=== PATIENT | female | born 1965 | race Caucasian/White ===

== ENCOUNTER 2019-01-16 11:49 | Day surgery (SDC) | payer BC ==
[2019-01-16] VITALS (12 sets, daily range): BP systolic 82–148; BP diastolic 51–89; PULSE 57–78; RESP 13–18; Ht 175.3 cm; Wt 63.5 kg
[~2019-01-16] VITALS: Ht 175.3 cm; Wt 63.5 kg
[2019-01-16] MEDS ORDERED: MOME13HF INHALATION (12:26)
[2019-01-16] MEDS ORDERED: ABAC1TAB12 PO (12:26)
[2019-01-16] MEDS ORDERED: HYDR-842 PO (12:27)
[2019-01-16] MEDS ORDERED: ESTR2TAB PO (12:27)
[2019-01-16] MEDS ORDERED: SPIR100T4 PO (12:28)
[2019-01-16] MEDS ORDERED: ASPI81TA52 PO (12:32)
[2019-01-16] MEDS ORDERED: LORA10TA3 PO (12:33)
[2019-01-16] MEDS ORDERED: ATOR20TA38 PO (12:34)
[2019-01-16] MEDS ORDERED: MONT10TA24 PO (12:35)
[2019-01-16] MEDS ORDERED: BUPR200T PO (12:36)
[2019-01-16] MEDS ORDERED: GABA-528 PO (12:36)
[2019-01-16] MEDS ORDERED: TAMS-14 PO (12:37)
[2019-01-16] MEDS ORDERED: SOD CHLORIDE 0.9% 1,000 ML IV ONE (13:00)
--- NOTE | 2019-01-16 14:46 | HPN ---
Date/Time of Note Date/Time of Note DATE: 01/16/19 TIME: 14:46 Interval H&P Admission Note Pt. seen H&P reviewed: No system changes ZOHAIB HUNTER MD January 16, 2019 14:46
--- NOTE | 2019-01-16 14:48 | PREAC ---
Date/Time of Note Date/Time of Note DATE: 01/16/19 TIME: 14:45 Anesthesia Eval and Record Evaluation Time Pre-Procedure Interview DATE: 01/16/19 TIME: 14:45 Age 53 Sex female NPO: 8 hrs Preoperative diagnosis dural role transvestism Planned procedure BILATERAL TRANSGENDER BREAST Past Medical History Past Medical History: Includes Cardio: Dyslipidemia Pulm: Smoking Hx (smoked 4 hours ago 30 year smoker), Asthma Neuro: Peripheral neuropathy Psych: Bipolar, Other (schizoaffective disorder) Infection(s): HIV Recreational drugs: Marijuana (everyday use) Surgery & Anesthesia Issues No known issue Meds Anticoagulation: No Beta Demetria within 24 hr: No Reason Beta Demetria not given: Pt. not on B-Demetria Reported Medications Tamsulosin Hcl* (Flomax*) 0.4 Mg Cap.er.24h, 0.4 MG PO DAILY, CAP 01/16/19 Bupropion Hcl* (Bupropion Hcl SR*) 200 Mg Tablet.sa, 200 MG PO DAILY, TAB.SA 01/16/19 Gabapentin* (Gabapentin*) 800 Mg Tablet, 800 MG PO TID, #90 TAB 01/16/19 Montelukast Sodium* (Montelukast Sodium*) 10 Mg Tablet, 10 MG PO QHS, #30 TAB 01/16/19 Atorvastatin Calcium* (Atorvastatin Calcium*) 20 Mg Tablet, 20 MG PO QHS, #30 TAB 01/16/19 Loratadine* (Loratadine*) 10 Mg Tablet, 10 MG PO DAILY, #30 TAB 01/16/19 Aspirin (Low Dose Aspirin) 81 Mg Tablet.dr, 81 MG PO DAILY, #30 TAB 01/16/19 Spironolactone* (Spironolactone*) 100 Mg Tablet, 100 MG PO BID, TAB 01/16/19 Hydroxyzine Hcl* (Atarax*) 25 Mg Tab, 25 MG PO Q6H PRN for ITCHING, TAB 01/16/19 Estradiol* (Estradiol*) 2 Mg Tablet, 2 MG PO BID, TAB 01/16/19 Mometasone-Formoterol (Dulera) 200-5 Mcg/Inh - 13 Gm Hfa.aer.ad, 2 PUFFS INHALATION BID, #1 INHALER 01/16/19 Abacavir/Dolutegravir/Lamivudi (Triumeq Tablet) 1 Each Tablet, 1 EACH PO DAILY, TAB 01/16/19 Current Medications Sodium Chloride 1,000 ml @ 500 mls/hr Q2H ONCE IV Last administered on 01/16/19at 13:12; Admin Dose 500 MLS/HR; Start 01/16/19 at 13:00; Stop 01/16/19 at 14:59 Meds reviewed: Yes Allergies Coded Allergies: No Known Allergy (Unverified , 01/16/19) Allergies Reviewed: Yes Labs/Studies Labs Reviewed: Reviewed by anesthesiologist test: N/A Studies: ECG (SR), CXR (WNL) Pre-procedure Exam Last vitals Vital Signs Date Temp Pulse Resp B/P (MAP) Pulse Ox O2 O2 Flow FiO2 Time Delivery Rate 01/16/19 96.9 57 16 82/51 (61) 97 13:06 Airway: Adequate mouth opening, Adequate thyromental dist Mallampati: Mallampati II Teeth: Abnormal (Missing teeth on bottom / edentulous) Lung: Normal Heart: Normal ASA Physical Status ASA physical status: 3 Emergency: None Planned Anesthetic General/MAC: ETT Pre-operative Attestations Prior to commencing anesthesia and surgery, the patient was re-evaluated, there was verification of: *The patient's identity *The results of appropriate recent lab work and preoperative vital signs *The above evaluation not changing prior to induction *Anesthetic plan, risk benefits, alternative and complications discussed with patient/family; questions answered; patient/family understands, accepts and wishes to proceed. MENDEZ MCADAMS January 16, 2019 14:48
[2019-01-16] MEDS ORDERED: PROPOFOL 20 ML ONE (14:57)
[2019-01-16] MEDS ORDERED: CEFAZOLIN 1 GM INJ ONE (14:57)
[2019-01-16] MEDS ORDERED: NEOSTIGMINE 3 MG/3 ML SYRINGE ONE (14:57)
[2019-01-16] MEDS ORDERED: ROCURONIUM 50 MG INJ ONE (14:57)
[2019-01-16] MEDS ORDERED: GLYCOPYRROLATE 0.4 MG INJ ONE (14:57)
[2019-01-16] MEDS ORDERED: MIDAZOLAM 1 MG/ML 2 ML INJ ONE (14:58)
[2019-01-16] MEDS ORDERED: FENTAnyl 50 MCG/ML VIAL ONE (14:58)
[2019-01-16] MEDS ORDERED: ONDANSETRON 4 MG INJ ONE (14:58)
[2019-01-16] MEDS ORDERED: DEXAMETHASONE 4 MG/ML 5 ML INJ ONE (14:58)
[2019-01-16] MEDS ORDERED: HYDROCODONE/APAP (5/325) TAB PO PRN (15:00)
[2019-01-16] MEDS ORDERED: ONDANSETRON 4 MG INJ IV PRN ×2 (15:00→16:00)
[2019-01-16] MEDS ORDERED: morphine 2 MG INJ IV PRN (15:00)
[2019-01-16] MEDS ORDERED: BUPIVACAINE LIPOSOME/PF 266 MG/20 ML VIAL INFIL SCH (15:00)
[2019-01-16] MEDS ORDERED: GENTAMICIN 80 MG INJ ONE (15:22)
[2019-01-16] MEDS ORDERED: BUPIVACAINE 0.25%/EPI (SDV) 30 ML INJ ONE (15:22)
[2019-01-16] MEDS ORDERED: POLYMYXIN/BACITRACIN 1L IRRIG ONE ×2 (15:23→16:22)
--- NOTE | 2019-01-16 15:23 | OPR ---
Date/Time of Note Date/Time of Note DATE: 01/16/19 TIME: 15:21 Operative Report Free Text/Dictation Plastic Surgery Operative Report Preoperative diagnosis: gender dysphoria Postoperative diagnosis: same Procedure: bilateral transgender breast reconstruction Surgeon: jame Parks.: HUSEYIN fritz Anesthesia: gen EBL: min IV fluids: per flow sheet Findings: n/a Complications: none Dispo:home Indications for procedure: 53 year-old transgender male to female patient presents for bilateral breast reconstruction with implants. The risks, benefits, alternatives of performing this procedure were discussed with the patient including risks of bleeding, infection, wound healing problems, asymm etry, as well as implant related complications such as deflation, capsular contracture, rupture, and need for future revisions as breast implants are not lifetime devices. The patient states that she understands these risks and would like to proceed with the procedure. All questions were answered, no guarantees were given with regards to the outcome of this procedure. Description of procedure: The patient was brought to the operating room at [facility] where general anesthesia was induced and the patient was prepped and draped in usual sterile fashion with ChloraPrep. A total of 5 cc of 0.25% Marcaine with 1: 200,000 epinephrine was injected into the planned incision site in each breast. The incision sites were marked along the new planned inframammary fold position based on the anticipated size of the breasts. Next, an incision was made in the right plan inframammary fold with the 15 blade, and dissection was carried out down to the pectoralis muscle with electrocautery. The pectoralis muscle was released on its inferior surface, and the subpectoral space was entered. A pocket was then created below the pect oralis muscle. Dissection proceeded medially, then superiorly, laterally, and under direct visualization, the pectoralis muscle was released from lateral to medial along its inferior fibers. The pocket was irrigated with antibiotic irrigation, hemostasis was achieved with electrocautery, and then attention was turned to the left breast where a similar procedure was carried out. Incision was made with 15 blade, and dissection was carried out down to the pectoralis muscle with electrocautery. The pectoralis muscle was released along its inferior fibers, and then the subpectoral space was entered. The pocket was created underneath the pectoralis muscle in a similar fashion, and an electro cautery was used to divide the pectoralis muscle under direct visualization from lateral to medial. Hemostasis was achieved with electrocautery, and the pocket was irrigated antibiotic irrigation, and the pockets were inspected and found to be symmetric. A 375 cc style M sizer was opened, rinsed in antibiotic irrigation, and was inserted into the left breast. This looked close to the patient's stated desire. A 405 cc style M sizer was opened, rinsed in antibiotic irrigation, and was inserted into the right breast. This was too large. Both sizers were therefore removed. A final round of hemostasis was achieved with electrocautery, and the pockets were irrigated antibiotic irrigation and bet adine. The 375cc sizer was placed into the right pocket, and this appeared symmetric to the left. Gloves were changed, and then an Allergan 375 cc implant SN [id number] was opened, rinsed in antibiotic irrigation, and was inserted into the left breast with minimal touch technique using the Faustin funnel. The same size and style implant serial #[id number] was inserted into the right breast with minimal touch technique using the funnel. The patient was sat up on the table and the breasts were symmetric. She was sat back down. A deep layer of tissue on Sudarshan's fascia was closed with 2-0 Vicryl suture followed by 3-0 Vicryl suture on the dermis and 4-0 Vicryl suture on the skin and skin adhesive. 40cc of dilute exparel solution were injected into the breasts. The patient tolerated procedure well, there were no complications, follow-up information and wound care instructions were given. HUSEYIN Fritz assisted with this procedure Preoperative Diagnosis gender dysphoria Postoperative Diagnosis same Operation/Procedure Performed bilateral transgender breast reconstruction Surgeon see signature line [employer] Supervisor HUSEYIN fritz Anesthesia Type: general Estimated Blood Loss: minimal Transfusion none Specimen none Grafts/Implants bilateral breast implants Complications none Procedure Description see dictation ZOHAIB HUNTER MD January 16, 2019 15:23
[2019-01-16] MEDS ORDERED: MIDAZOLAM 1 MG/ML 2 ML INJ IV PRN (16:00)
[2019-01-16] MEDS ORDERED: OXYCODONE/ACETAMINOPHEN (5/325) TAB PO PRN ×2 (16:00)
[2019-01-16] MEDS ORDERED: LABETALOL HCL 20MG INJ IV PRN (16:00)
[2019-01-16] MEDS ORDERED: MEPERIDINE 25 MG INJ IV PRN (16:00)
[2019-01-16] MEDS ORDERED: EPHEDrine SULFATE 50 MG/5 ML SYG IV PRN (16:00)
[2019-01-16] MEDS ORDERED: HYDROmorphONE 1 MG/5 ML IV SYRINGE IV PRN ×3 (16:00)
[2019-01-16] MEDS ORDERED: hydrALAzine 20 MG INJ IV PRN (16:00)
[2019-01-16] MEDS ORDERED: TRIMETHOBENZAMIDE 100 MG/ML VIAL IM PRN (16:00)
[2019-01-16] MEDS ORDERED: IPRATROPIUM (NEB) 0.5 MG/2.5 ML AMP HHN PRN (16:00)
[2019-01-16] MEDS ORDERED: FENTAnyl 50 MCG/ML VIAL IV PRN ×3 (16:00)
[2019-01-16] MEDS ORDERED: DIPHENHYDRAMINE 50 MG INJ IV PRN (16:00)
[2019-01-16] MEDS ORDERED: ALBUTEROL 0.083% (NEB) 2.5 MG/3 ML AMP HHN PRN (16:00)
[2019-01-16] MEDS ORDERED: POLYMYXIN B 500000 UNIT INJ ONE (16:24)
[2019-01-16] MEDS ORDERED: SUGAMMADEX SODIUM 200 MG/2 ML VIAL IV ONE (17:00)
--- NOTE | 2019-01-18 09:50 | PAC ---
Date/Time of Note Date/Time of Note DATE: 01/18/19 TIME: 09:47 Post-Anesthesia Notes Post-Anesthesia Note Last documented vital signs Vital Signs Date Temp Pulse Resp B/P (MAP) Pulse Ox O2 O2 Flow FiO2 Time Delivery Rate 01/16/19 68 13 109/70 93 Room Air 18:33 (83) 01/16/19 98.0 17:14 Activity: WNL Respiratory function: WNL Cardiovascular function: WNL Mental status: Baseline Pain reasonably controlled: Yes Hydration appropriate: Yes Nausea/Vomiting absent: Yes Jermaine Manzanares M.D. January 18, 2019 09:50
== END 2019-01-16 19:00 | disposition home or self-care (01) ==
LOC: SDS 11:49
PROVIDERS: ATTEND Surgery Plastic and Reconstructive Surgery
DX: F64.8 Other gender identity disorders (principal)
CPT/HCPCS: 19340; C1789; C9290; J0690; J1100; J1580; J2175; J2250; J2405; J3010; Z7512; Z7610; J2710